=== PATIENT | female | born 1985 | race Caucasian/White ===

== ENCOUNTER 2016-09-02 19:48 | Emergency (ER) | payer OTHER ==
[2016-09-02 18:53] LABS: URINE SOURCE CLEAN CATCH
[2016-09-02 19:06] LABS: URINE APPEARANCE CLOUDY; URINE BILIRUBIN NEG (NEG); URINE BLOOD NEG (NEG); URINE COLOR YELLOW; URINE GLUCOSE NEG (NEG); URINE KETONE NEG (NEG); URINE LEUKOCYTE ESTERASE 1+ (NEG); URINE NITRATE POS (NEG); URINE PROTEIN TRACE (NEG); URINE SPECIFIC GRAVITY 1.017 (1.003-1.035); URINE UROBILINOGEN 0.2 MG/DL (NEG)
[2016-09-02 19:09] LABS: CULTURE INDICATED? YES; URBCS1 AUWI 0-2 /[HPF] (0-2); URINE BACTERIA AUWI 4+ (NEGATIVE); URINE SQUAMOUS EPITHELIAL CELL OCC /[HPF]; UWBCS1 AUWI 25-50 (0-5)
[~2016-09-02 19:48] MED LIST: ACETAMINOPHEN PO; ALPRAZOLAM PO; CIPRO PO; KEPPRA500 MG PO; PYRIDIUM PO; VOLTAREN75 MG PO
[2016-09-06 08:08] LABS: CHLAMYDIA TRACH Not Detected (Not Detected); N GONOR Not Detected (Not Detected)
== END 2016-09-02 20:38 | disposition home or self-care (01) ==
LOC: CFTX 19:48
PROVIDERS: Emergency Medicine; Nurse Practitioner Family
DX: N30.00 Acute cystitis without hematuria (principal); Z20.2 Contact with and (suspected) exposure to infections with a predominantly sexual mode of transmission; F17.210 Nicotine dependence, cigarettes, uncomplicated; Z90.710 Acquired absence of both cervix and uterus
CPT/HCPCS: 81003; 87086; 87088; 87186; 87491; 87591; 87808; 87905; 96372; 99284; J0696

== ENCOUNTER → 2016-09-04 00:55 | Emergency (ER) | payer OTHER | END | disposition left against medical advice (07) | LOC: CED 00:55 | DX: Z53.21 Procedure and treatment not carried out due to patient leaving prior to being seen by health care provider (principal) ==